=== PATIENT | male | born 1925 | race Caucasian/White ===

== ENCOUNTER 2016-07-16 17:55 | Emergency (ER) | payer MEDICARE, BC ==
[~2016-07-16] VITALS: Ht 177.8 cm; Wt 68.7 kg
[2016-07-16 17:55] VITALS: Ht 177.8 cm; Wt 68.7 kg
[~2016-07-16 17:55] MED LIST: ASPI-558 GT; CITA10TA7 GT; DEXT15DR5 OP; LACT1CAP80 PO; LISI-625 PO; LOPE2TAB24 PO; MECL-103 PO; MIRT15TA PO; POTA-81 PO; TAMS0.4C20 GT; TIZA2TAB4 PO; TORS10TA17 PO; TRAM50TA4 PO; VIT1CAPS2 PO; WARF6TAB23 PO
--- OUTSIDE RECORDS SUMMARY | 2016-07-16 17:59 | XMS REPORT | Continuity of Care Document ---
Author Author [facility] Organization [facility] Address Unknown Phone Unavailable Support Name Relationship Address Phone HAIM LARA MD Caregiver [address] [place] [address] Unavailable ERNESTO RODRIGUEZ DO Caregiver [address] [place] [address] Unavailable JEFF VAZQUEZ Next Of Kin [address] [place] [address] Insurance Providers Guarantor Abram Vazquez Address [address] [place] [address] Email DENIED/NO TO PT [facility] Policy Number [id number] Subscriber's Name ChatasabinoAbram hunt Rima Relationship 18 Self Group Number [id number] Effective Date 92 Payer Medicare Policy Number [id number] Subscriber's Name TaylorAbram Abarca Relationship 18 Self Effective Date 92 Payer Premises Med(Medicare/Caid/Tr Subscriber's Name Abram Vazquez Rima Relationship 18 Self Advance Directives Directive Response Recorded Date/Time Advanced Directives Type DNR Documentation Living Will DPOA for Healthcare 07/04/16 11:24am Chief Complaint and Reason for Visit Chief Complaint Fall Reason for Visit [id number] Problems Past Problems Medical Problem Onset Date Abrasion forearm Unknown C7 cervical fracture Unknown Fall from ground level Unknown Medications Current Home Medications Medication Dose Units Route Directions Days Qty Instructions Start Date Aspirin (Aspir 81) 81 Mg Tablet. 81 Mg Oral Daily 09/11/12 Citalopram Hydrobromide (Citalopram Hbr) 10 Mg Tablet 15 Mg Oral Daily 07/04/16 Dextran 70/Hypromellose (Artificial Tears Eye Drops) 15 Ml Drops 1 Drop Ophthalmic As Needed 07/04/16 Lactobacillus Combo No.10 (Probiotic) 1 Each Capsule 1 Cap Oral Daily 07/04/16 Lisinopril 5 Mg Tablet 5 Mg Oral Bedtime 12/10/15 Loperamide Hcl (Loperamide) 2 Mg Tablet 2 Mg Oral Every 3 Hours as needed for Diarrhea 07/04/16 Meclizine Hcl 25 Mg Tablet 25 Mg Oral Three Times A Day 07/04/16 Mirtazapine (Remeron) 15 Mg Tablet 7.5 Mg Oral Hs Qod 07/04/16 Potassium Chloride 20 Meq Tablet.er 20 Meq Oral Give With Breakfast 12/10/15 Tamsulosin Hcl (Flomax) 0.4 Mg Cap.sr.24h 0.4 Mg Oral Bedtime 20/02 Tizanidine Hcl 2 Mg Tablet 2 Mg Oral Every 6 Hours as needed for Back Pain 12/10/15 Torsemide 10 Mg Tablet 10 Mg Oral Daily 07/04/16 Tramadol Hcl 50 Mg Tablet 50-100 Mg Oral Q6h/0300,0900,1500,2100 as needed for Pain 07/04/16 Vit C/Vit E Ac/Lut/Mineral 1 (Prosight With Lutein Capsule) 1 Each Capsule 1 Cap Oral Daily 12/10/15 Warfarin Sodium (Coumadin) 6 Mg Tablet 6 Mg Oral Daily 12/10/15 Past Home Medications Medication Directions Ordered Status Valsartan (Diovan) 160 Mg Tablet, 160 Mg Oral Twice A Day 10/21/09 Discontinued Vit C/Vit E Acetate/Lutein/Min (Ocuvite Lutein Capsule) 1 Cap Capsule, 1 Cap Oral Daily 10/21/09 Discontinued Social History Social History Problem Response Recorded Date/Time Onset Date Status Hx Alcohol Use No 07/04/2016 11:24am Not Applicable Not Applicable Query Response Start Date Stop Date Smoking Status Unknown if ever smoked Hospital Discharge Instructions No hospital discharge instructions. Plan of Care Discharge Date 07/04/16 2:25pm Disposition 02 TO [facility] Condition at Discharge Improved Prescriptions See Medication Section Referrals HAIM LARA MD Address: [address] [place] [address] [place] [address] Functional Status No functional status results. Allergies, Adverse Reactions, Alerts Allergen Type Severity Reaction Status Last Updated Codeine Adverse Reaction Unknown "DOES NOT FEEL WELL" Active 09/11/12 Immunizations Immunization Event Date Type Not Given Reason Dose Number Lot Number Manager Front Office VIS Given Tdap 07/04/16 Administered 1 [id number] Polyheal 07/04/16 Query Response on File Recorded Date/Time Hx Influenza Vaccination Y 03-0310/21/09 1:31pm Hx Pneumococcal Vaccination Y 200310/21/09 1:31pm Hx Influenza Vaccination Y 03-0310/21/09 1:31pm Tetanus Diptheria Vaccine History 07/04/2016 07/04/16 11:24am Tdap Vaccine Hx 07/04/2016 07/04/16 2:10pm Vital Signs Acute Vital Signs Vital Response Date/Time Temperature (Fahrenheit) 97.5 deg F (96.8 - 99.1) 07/04/2016 11:24am Temperature (Calculated Celsius) 36.56774 degrees C (36.0 - 37.3) 07/04/2016 11:24am Pulse Rate (adult) 70 bpm (60 - 100) 07/04/2016 2:20pm Respiratory Rate 16 breaths/min (10 - 20) 07/04/2016 2:20pm O2 Sat by Pulse Oximetry 97 % (90 - 100) 07/04/2016 2:20pm Blood Pressure 163/79 mm Hg 07/04/2016 2:20pm Height (Feet) 6 feet 07/04/2016 11:24am Height (Inches) 0 inches 07/04/2016 11:24am Weight (Kilograms) 70.450 kg 07/04/2016 11:24am Body Mass Index (BMI) 21.0 07/04/2016 11:24am Results Laboratory Results Test Name Result Units Flags Reference Collection Date/Time Result Date/ Time Comments White Blood Count 7.5 T/MM3 4.5-11.0 07/04/2016 11:30am 07/04/2016 12: 05pm Red Blood Count 4.33 M/MM3 L 4.50-5.90 07/04/2016 11:30am 07/04/2016 12: 05pm Hemoglobin 12.9 GM/DL L 13.5-17.5 07/04/2016 11:30am 07/04/2016 12:05pm Hematocrit 40.1 % L 41-53 07/04/2016 11:30am 07/04/2016 12:05pm Mean Corpuscular Volume 92.6 UM3 80-100 07/04/2016 11:30am 07/04/2016 12:05pm Mean Corpuscular Hemoglobin 29.8 UUG 26-34 07/04/2016 11:302016 12:05pm Mean Corpuscular Hemoglobin Concent 32.2 GM/DL 31-37 07/04/2016 11:3007/04/2016 12:05pm RDW Standard Deviation 51.1 FL H 36.9-50.2 07/04/2016 11:302016 12:05pm Platelet Count 134 T/MM3 130-400 07/04/2016 11:3007/04/2016 12:05pm Mean Platelet Volume 11.7 UM3 9.4-12.4 07/04/2016 11:3007/04/2016 12 :05pm Neutrophils (%) (Auto) 73.1 % H 33-66 07/04/2016 11:3007/04/2016 12: 05pm Lymphocytes (%) (Auto) 15.4 % L 23-45 07/04/2016 11:3007/04/2016 12: 05pm Monocytes (%) (Auto) 8.7 % 0-9.0 07/04/2016 11:3007/04/2016 12:05pm Eosinophils (%) (Auto) 2.1 % 0-4 07/04/2016 11:3007/04/2016 12:05pm Basophils (%) (Auto) 0.4 % 0-2 07/04/2016 11:3007/04/2016 12:05pm Immature Granulocyte % (Auto) 0.3 % 0.0-0.5 07/04/2016 11:302016 12:05pm Absolute Neutrophils (auto) 5.5 T/MM3 1.8-7.7 07/04/2016 11:302016 12:05pm Absolute Lymphocytes (auto) 1.2 T/MM3 1-4.8 07/04/2016 11:302016 12:05pm Absolute Monocytes (auto) 0.7 T/MM3 0-0.8 07/04/2016 11:302016 12:05pm Absolute Eosinophils (auto) 0.2 T/MM3 0-0.5 07/04/2016 11:302016 12:05pm Absolute Basophils (auto) 0.0 T/MM3 0-0.2 07/04/2016 11:30am 2016 12:05pm Absolute Immature Granulocyte (auto 0.02 T/MM3 0.00-0.03 07/04/2016 11: 30am 07/04/2016 12:05pm Prothromb Time International Ratio 3.37 H 0.76-1.04 07/04/2016 11:30am 07/04/2016 11:44am THERAPUTIC RANGE=2.00-3.00 FOR ANTI-THROMBOSIS THERAPUTIC RANGE=2.50-3.50 FOR IMPLANTED VALVE Icterus Index < 2 0-7 07/04/2016 11:30am 07/04/2016 12:11pm Chemistry Specimen Hemolysis < 15 0-25 07/04/2016 11:3007/04/2016 12:11pm 0-25: Specimen Exhibited No Hemolysis. Turbidity < 20 0-20 07/04/2016 11:30am 07/04/2016 12:11pm Sodium Level 144 MEQ/L 134-144 07/04/2016 11:30am 07/04/2016 12:11pm Potassium Level 4.7 MEQ/L 3.6-5 07/04/2016 11:30am 07/04/2016 12:11pm Chloride Level 108 MEQ/L H 98-107 07/04/2016 11:30am 07/04/2016 12:11pm Carbon Dioxide Level 25 MEQ/L 22-30 07/04/2016 11:30am 07/04/2016 12: 11pm Anion Gap 11 MEQ/L 5-15 07/04/2016 11:30am 07/04/2016 12:11pm Blood Urea Nitrogen 24.0 MG/DL H 9-20 07/04/2016 11:30am 07/04/2016 12: 11pm Creatinine 0.8 MG/DL 0.8-1.5 07/04/2016 11:3007/04/2016 12:11pm BUN/Creatinine Ratio 30 RATIO H 6-26 07/04/2016 11:30am 07/04/2016 12: 11pm Glomerular Filtration Rate Calc 91 07/04/2016 11:30am 07/04/2016 12 :11pm Glucose Level 131 MG/DL H 75-110 07/04/2016 11:3007/04/2016 12:11pm Calculated Osmolality 283 MOSM/KG H 261-280 07/04/2016 11:30am 2016 12:11pm Calcium Level 9.5 MG/DL 8.4-10.2 07/04/2016 11:30am 07/04/2016 12:11pm Total Bilirubin 0.90 MG/DL 0.20-1.30 07/04/2016 11:30am 07/04/2016 12: 11pm Alkaline Phosphatase 86 U/L 38-126 07/04/2016 11:30am 07/04/2016 12: 11pm Total Protein 6.8 G/DL 6.3-8.2 07/04/2016 11:30am 07/04/2016 12:11pm Albumin 4.1 G/DL 3.5-5.0 07/04/2016 11:30am 07/04/2016 12:11pm Globulin 2.7 G/DL 2.4-3.6 07/04/2016 11:30am 07/04/2016 12:11pm Albumin/Globulin Ratio 1.5 RATIO 1.1-2.2 07/04/2016 11:30am 07/04/2016 12:11pm Aspartate Amino Transf (AST/SGOT) 23 U/L 17-59 07/04/2016 11:30am 07/04 12:11pm Alanine Aminotransferase (ALT/SGPT) 26 U/L 21-72 07/04/2016 11:30am 03/2017 12:11pm Troponin I < 0.012 ng/ml 0-0.12 07/04/2016 11:30am 07/04/2016 12:22pm Troponin values with a difference of 55% increase from orginal troponin value represent a true biological DELTA value. (%increase Calc=Orginal Troponin value, divided by subsequent Troponin value, multiplied by 100) Procedures Procedure Status Date Provider(s) Routine venipuncture Completed 04/05/16 Prothrombin time Completed 04/05/16 [id number] TRIP CHARGE. Completed 04/05/16 Routine venipuncture Completed 05/07/16 Prothrombin time Completed 05/07/16 Routine venipuncture Completed 05/31/16 Comprehen metabolic panel Completed 05/31/16 Complete cbc w/auto diff wbc Completed 05/31/16 [id number] TRIP CHARGE. Completed 05/31/16 Routine venipuncture Completed 06/07/16 Prothrombin time Completed 06/07/16 [id number] TRIP CHARGE. Completed 06/07/16 Encounters Encounter Location Arrival/Admit Date Discharge/Depart Date Attending Provider Departed Emergency Room [facility] 07/04/16 11:24am 07/04/16 2: 25pm ERNESTO RODRIGUEZ DO Registered [facility] 06/07/16 12:26am HAIM LARA MD Registered [facility] 05/31/16 12:41am MADI FISCHER APRN Registered [facility] 05/07/16 12:51am HAIM LARA MD [facility] 04/05/16 12:17am HAIM LARA MD Recent Diagnosis
--- OUTSIDE RECORDS SUMMARY | 2016-07-16 17:59 | XMS REPORT | Continuity of Care Document ---
Author Author [facility] Organization [facility] Address Unknown Phone Unavailable Allergies Active Description Code Type Severity Reaction Onset Reported/Identified Relationship to Patient Clinical Status Yes Codeine Drug Allergy Adverse Reaction 04/22/2012 Yes Codeine Drug Allergy N/A Adverse Reaction 04/22/2012 Medications Problems Date Dx Coded Attending Type Code Diagnosis Diagnosed By 04/23/2012 Karina Bowman MD Final 285.9 ANEMIA NOS 04/23/2012 Karina Bowman MD Final 287.5 THROMBOCYTOPENIA NOS 04/23/2012 Karina Bowman MD Final 396.3 MVI LATISHA 04/23/2012 Karina Bowman MD Final 401.9 HYPERTENSION NOS 04/23/2012 Karina Bowman MD Final 427.31 ATRIAL FIBRILLATION 04/23/2012 Karina Bowman MD Final 428.0 CHF NOS 04/23/2012 Karina Bowman MD Admitting 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 Visit Date/Time Discharge Status Pt. Type Provider Facility Loc./Unit Complaint [id number] 01/06/2013 12:01:00 2012 17:27:00 DIS Inpatient Yobani KIMBLE, Stephane Garza [facility] [place] F4SW [id number] 04/22/2012 22:10:00 2011 17:56:00 DIS Inpatient Corina Cavazos MD, Karina Perez [facility] [place] F7SE
--- OUTSIDE RECORDS SUMMARY | 2016-07-16 17:59 | XMS REPORT ---
Author Author [place]/[facility], [facility] - Organization Unknown Address Unknown Phone Unavailable Allergies, Adverse Reactions, Alerts * Codeine causes Adverse Reaction. * No Latex Allergy. * No IV Contrast Allergy. Problems * Acute Pain* Status:Resolved. * Congestive Heart Failure* Status:Active. * Dyspnea* Status:Active. * Fall Risk* Status:Resolved. * Intracranial Adaptive Capacity Low Level* Status:Active. * Knowledge Low Level* Status:Active. * Mobility Impairment* Status:Resolved. Procedures No relevant procedures performed. Medication It is the responsibility of the patient or patient service liaison representative to confirm the list of medications with either the patient's personal care provider or the patient's follow-up care provider to ensure the patient has an appropriate list of medications to take at home. Discharge medications* carvedilol (Coreg) 25 mg Tablet, Ordered By: Stephane Hilton Directions: 1 tablet oral twice a day with or after meal * warfarin 4 mg Tablet, Ordered By: Stephane Hilton Directions: 1 tablet oral daily with lunch * lisinopril 40 mg Tablet, Ordered By: Stephane Hilton Directions: 1 tablet oral daily * digoxin 250 mcg Tablet, Ordered By: Stephane Hilton Directions: 0.5 tablet oral daily * tamsuLOSIN (FLOmax) 0.4 mg capsule,extended release 24hr, Ordered By: Stephane Hilton Directions: 1 capsule oral daily at bedtime * aspirin 81 mg tablet,delayed release (DR/EC), Ordered By: Stephane Hilton Directions: 1 tablet oral daily * bumetanide 1 mg Tablet, Ordered By: Stephane Hilton Directions: 1 tablet oral twice a day * spironolactone 25 mg Tablet, Ordered By: Stephane Hilton Directions: 1 tablet oral daily Stopped medications* HYDROcodone-acetaminophen (Lortab) 5 mg-500 mg Tablet Directions: 0.5 tablet oral every four hours PRN pain * verapamil 120 mg Tablet Extended Release Directions: 1 tablet oral daily * Stopped medication: Hydrochlorothiazide 25 mg 0.5 tablet oral daily; stop date: over a week ago; discontinued per patient's doctor * zolpidem 5 mg Tablet Directions: 1 tablet oral daily at bedtime PRN insomnia * Centrum Silver 1 tablet oral daily; last taken at home: 01/05/2013 Results LAB--CHEMISTRY from 01/08/2013 3:43 AMAnion Gap 8 (3-20 ) BUN 19 mg/dL (4-20 mg/dL) Calcium 9.1 mg/dL (8.6-10.0 mg/dL) Chloride 102 mEq/L (99-109 mEq/L) CO2 28 mEq/L (22-32 mEq/L) Creatinine 1.07 mg/dL (0.64-1.27 mg/dL) eGFR >60 (>60- ) Glucose 106 mg/dL H (70-100 mg/dL) Potassium 4.1 mEq/L (3.6-5.1 mEq/L) Sodium 138 mEq/L (136-144 mEq/L) LAB--COAG STUDIES from 01/08/2013 3:43 AMINR 2.7 H (0.9-1.2 )
[2016-07-16] MEDS ORDERED: ACET325T51 GT (18:07)
[2016-07-16] MEDS ORDERED: CARV12.52 GT (18:09)
[2016-07-16] MEDS ORDERED: DIGO125T88 GT (18:10)
[2016-07-16] MEDS ORDERED: IPRA3AMP AEROSOL ×2 (18:11→18:12)
[2016-07-16] MEDS ORDERED: LISI-621 GT (18:13)
[2016-07-16] MEDS ORDERED: OMEPRAZOLE GT (18:15)
[2016-07-16] MEDS ORDERED: ONDA4TAB10 GT (18:16)
[2016-07-16] MEDS ORDERED: OXYC-46 GT (18:17)
[2016-07-16] MEDS ORDERED: RIVA10TA GT (18:19)
--- NOTE | 2016-07-16 18:29 | ERPDOC ---
Departure Disposition Decision Date: Jul 16, 2016 Disposition Decision Time: 19:54 Disposition: 01 DISCHARGED HOME, SELF-CARE Impression Impression Impression: Primary Impression: Encounter for wound care Severity: Moderate Condition: Improved Seen By: Physician only Referrals: HAIM LARA MD (Family) Patient Instructions: Surgical Site Infections (ED) Problems/Meds/Labs Reviewed?: Yes Medications reviewed and manag: Yes Additional Instructions: If bleeding recurs, apply gentle pressure. Follow up care ordered?: Yes Mental Status: Forgetful, Confused HPI - Skin General General Chief Complaint: Post-Surgical Problem Stated Complaint: FALL Time Seen by Provider: 18:24 HPI - Skin General Initial Comments 89 yo with newly placed G tube. Seen at long term with blood coming from site and brought in for eval. He is on xarelto. Uncertain of date of placement of tube. Pt has dementia. Allergies: Coded Allergies: codeine (Unverified Adverse Reaction, Unknown, "DOES NOT FEEL WELL", ) Past History Past Medical History Metabolic: hypertension Cardiac: A-fib, CHF Male: BPH Neurological: TIA Musculoskeletal: back pain, neck pain, other Surgical History Cardiac: cardiac bypass Vaccines Hx Influenza Vaccination: Yes (03-03) Hx Pneumococcal Vaccination: Yes (2003) Social History Smoking Status: Never smoker Substance Use Type: does not use Alcohol Intake: none Marital Status: Housing: assisted living facility Current Occupational Status: retired Advance Directives: Yes DNR Record Review Pertinent history updated: Yes Review of Systems Unable to Obtain Comments Dementia, unable to answer questions. Physical Exam General General Nourishment: appears stated age, no acute distress, adult, thin General Body Habitus: disheveled Vitals and Pain First Documented Vital Signs Date Time Temp Pulse Resp B/P Pulse Ox O2 Delivery O2 Flow Rate FiO2 07/16/16 17:55 98.7 70 16 167/79 96 Room Air Weight: Kilograms: 68.700 Height (feet): 5 Height (inches): 10.00 Triage Pain Scale: Normal Exams: Head: Normocephalic w/o trauma Chest/Resp: Clear all mead, with good airflow, and symmetry bilaterally CV: without murmur or gallop, Pulses 2+ all extremities, capillary refill, <2 seconds all ext., no pedal edema noted Abdomen: Bowel sounds positive, soft, non-tender, non-distended, no hepatosplenomegaly, masses or bruits noted Cardiovascular (brief) Cardiac: NOT FOUND: regular rate, regular rhythm Abdomen (brief) Abdominal Brief: FOUND: bowel normo active x4, soft Comments Tube site evaluated. no intraabdominal drainage. Pt has thin oozing blood from site. No specific vascular bleed seen. Differential Diagnoses Considering: Other (wound oozing.) Progress Results/Orders Orders Procedure Category Date Status Time Kub W/Upright RAD 07/16/16 Taken 19:01 Progress Progress X-rays negative. Patient had thin blood oozing at site. A little bit of pressure was applied and patient was given 20 minutes of observation. Bleeding stopped area and I do think this will recur if he tugs at at, which he may. I discussed this with the caregiver that was present with him. They will change bandages as needed and if refill becomes out of control that can bring him back , although I do not think this will be an issue. PEYMAN VILLANUEVA MD Jul 16, 2016 18:29
--- OUTSIDE RECORDS SUMMARY | 2016-07-16 18:36 | XMS REPORT | Continuity of Care Document ---
[...] Status Pt. Type Provider Facility Loc./Unit Complaint [id number] 01/06/2013 12:01:00 2012 17:27:00 DIS Inpatient Yobani KIMBLE, Stephane Garza [facility] [place] F4SW [id number] 04/22/2012 22:10:00 2011 17:56:00 DIS Inpatient Corina Cavazos MD, Karina Perez [facility] [place] F7SE
--- OUTSIDE RECORDS SUMMARY | 2016-07-16 18:36 | XMS REPORT ---
Author Author [place], [facility] - Organization Unknown Address Unknown Phone Unavailable [...] the responsibility of the patient or patient lead generation representative to confirm the list of medications [...]
--- NOTE | 2016-07-16 18:38 | NUR ---
Report Call placed to [facility]. Nurse there gives information that PEG Tube was placed on 07/09/16
[2016-07-16 20:00] VITALS: BP 167/79; PULSE 70; RESP 16; TEMP 98.7; O2SAT 96
--- NOTE | 2016-07-18 10:28 | DI ---
Indication: ITS.REASON: peg tube placement, PROCEDURE: KUB W/UPRIGHT: Encounter: Initial Comparison: None Findings: Small pleural effusions with lower lobe airspace disease. No gross free intraperitoneal air. Gastrostomy tube in place projecting over the stomach with some contrast material present which appears intraluminal. Calcified granuloma or gallstone projecting over the liver. Nonobstructive nonspecific bowel gas pattern. Cardiac pacemaker. Degenerative changes in the spine. Impression: Gastrostomy tube projects in appropriate position. .
== END 2016-07-16 20:00 | disposition home or self-care (01) ==
LOC: ED 17:55
DX: K94.21 Gastrostomy hemorrhage (principal); Z79.01 Long term (current) use of anticoagulants

== ENCOUNTER 2016-07-26 07:30 | Emergency (ER) | payer MEDICARE, BC ==
[~2016-07-26] VITALS: Ht 180.3 cm; Wt 69.5 kg
[~2016-07-26 07:30] MED LIST changes: +ACET325T51 GT; +CARV12.52 GT; -DEXT15DR5 OP; +DIGO125T88 GT; +IPRA3AMP AEROSOL; -LACT1CAP80 PO; +LISI-621 GT; -LISI-625 PO; -LOPE2TAB24 PO; -MECL-103 PO; -MIRT15TA PO; +OMEPRAZOLE GT; +ONDA4TAB10 GT; +OXYC-46 GT; -POTA-81 PO; +RIVA10TA GT; -TIZA2TAB4 PO; -TORS10TA17 PO; -TRAM50TA4 PO; -VIT1CAPS2 PO; -WARF6TAB23 PO
[2016-07-26 07:31] VITALS: Ht 180.3 cm; Wt 69.5 kg
--- OUTSIDE RECORDS SUMMARY | 2016-07-26 07:34 | XMS REPORT ---
Author Author [place] [place] [facility] - Organization Unknown Address Unknown Phone Unavailable [...] the responsibility of the patient or patient product representative to confirm the list of medications [...]
--- OUTSIDE RECORDS SUMMARY | 2016-07-26 07:34 | XMS REPORT | Continuity of Care Document ---
Author Author [facility] Organization [facility] Address Unknown Phone Unavailable Allergies [...] Status Pt. Type Provider Facility Loc./Unit Complaint [id number] 01/06/2013 12:01:00 2012 17:27:00 DIS Inpatient Yobani KIMBLE, Stephane Garza [facility] [place] F4SW [id number] 04/22/2012 22:10:00 2011 17:56:00 DIS Inpatient Corina Cavazos MD, Karina Perez [facility] [place] F7SE
--- OUTSIDE RECORDS SUMMARY | 2016-07-26 07:34 | XMS REPORT | Continuity of Care Document ---
Author Author [facility] Organization [facility] Address Unknown Phone Unavailable Support Name Relationship Address Phone HAIM LARA MD Caregiver [address] [place] [address] Unavailable PEYMAN VILLANUEVA MD Caregiver [address] [place] [address] Unavailable JEFF VAZQUEZ Next Of Kin [address] [place] [address] Insurance Providers Guarantor Abram Vazquez Address [address] [place] [address] Email DENIED/NO TO PT PORTAL Payer Medicare Policy Number [id number] Subscriber's Name ChatasabinoAbram hunt Rima Relationship 18 Self Effective Date 92 Payer [facility] Policy Number [id number] Subscriber's Name Abram Vazquez Rima Relationship 18 Self Group Number [id number] Advance Directives Directive Response Recorded Date/Time Advanced Directives Type None 07/16/16 5:55pm Chief Complaint and Reason for Visit Chief Complaint Post-Surgical Problem Reason for Visit Encounter for wound care Problems Past Problems Medical Problem Onset Date Abrasion forearm Unknown C7 cervical fracture Unknown Encounter for wound care Unknown Fall from ground level Unknown Medications Current Home Medications Medication Dose Units Route Directions Days Qty Instructions Start Date Acetaminophen 325 Mg Tablet 650 Mg G Tube As Needed as needed for Pain 07/16/16 Aspirin (Aspir 81) 81 Mg Tablet. 81 Mg G Tube Daily 09/11/12 Carvedilol 12.5 Mg Tablet 12.5 Mg G Tube Twice Daily With Meals BEST WITH FOOD. 07/16/16 Citalopram Hydrobromide (Citalopram Hbr) 10 Mg Tablet 10 Mg G Tube Daily 07/04/16 Digoxin 125 Mcg Tablet 125 Mcg G Tube Daily 07/16/16 Ipratropium/Albuterol Sulfate (Iprat-Albut 0.5-3(2.5) Mg/3 Ml) 3 Ml Ampul.neb 1 Unit Aerosol Tx. Four Times Daily 07/16/16 Ipratropium/Albuterol Sulfate (Iprat-Albut 0.5-3(2.5) Mg/3 Ml) 3 Ml Ampul.neb 1 Unit Aerosol Tx. Every 2 Hours as needed for Shortness Of Air Lisinopril 20 Mg Tablet 20 Mg G Tube Daily 07/16/16 Omeprazole Susp. 10 Ml G Tube Twice A Day 07/16/16 Ondansetron (Ondansetron Odt) 4 Mg Tab.rapdis 4 Mg G Tube Q6h/0300,0900, 1500,2100 07/16/16 Oxycodone Hcl/Acetaminophen (Percocet 5-325 Mg Tablet) 5-325 Tablet 1 Tab G Tube Every 4 Hours as needed for Pain 07/16/16 Rivaroxaban (Xarelto) 10 Mg Tablet 10 Mg G Tube Daily 21 Days DC 07/16/16 Tamsulosin Hcl (Flomax) 0.4 Mg Cap.sr.24h 0.8 Mg G Tube Bedtime 10/21/09 Past Home Medications Medication Directions Ordered Status Valsartan (Diovan) 160 Mg Tablet, 160 Mg Oral Twice A Day 10/21/09 Discontinued Vit C/Vit E Acetate/Lutein/Min (Ocuvite Lutein Capsule) 1 Cap Capsule, 1 Cap Oral Daily 10/21/09 Discontinued Social History Social History Problem Response Recorded Date/Time Onset Date Status Hx Substance Use No 07/16/2016 6:10pm Not Applicable Not Applicable Hx Alcohol Use No 07/16/2016 6:10pm Not Applicable Not Applicable Query Response Start Date Stop Date Smoking Status Never smoker Hospital Discharge Instructions No hospital discharge instructions. Plan of Care Discharge Date 07/16/16 8:00pm Disposition 01 DISCHARGED HOME, SELF-CARE Condition at Discharge Improved Instructions/Education Provided Surgical Site Infections (ED) Prescriptions See Medication Section Referrals HAIM LARA MD Address: [address] [place] [address] [place] [address] Additional Instructions/Education If bleeding recurs, apply gentle pressure. Functional Status No functional status results. Allergies, Adverse Reactions, Alerts Allergen Type Severity Reaction Status Last Updated Codeine Adverse Reaction Unknown "DOES NOT FEEL WELL" Active 09/11/12 Immunizations Immunization Event Date Type Not Given Reason Dose Number Lot Number [employer] VIS Given Tdap 07/04/16 Administered 1 [id number] [employer] 07/04/16 Query Response on File Recorded Date/Time Hx Influenza Vaccination Y 03-0310/21/09 1:31pm Hx Pneumococcal Vaccination Y 200310/21/09 1:31pm Hx Influenza Vaccination Y 03-0310/21/09 1:31pm Tetanus Diptheria Vaccine History 07/04/2016 07/16/16 6:10pm Tdap Vaccine Hx 07/04/2016 07/16/16 6:10pm Vital Signs Acute Vital Signs Vital Response Date/Time Temperature (Fahrenheit) 98.7 deg F (96.8 - 99.1) 07/16/2016 8:00pm Temperature (Calculated Celsius) 37.22562 degrees C (36.0 - 37.3) 07/16/2016 8:00pm Pulse Rate (adult) 70 bpm (60 - 100) 07/16/2016 8:00pm Respiratory Rate 16 breaths/min (10 - 20) 07/16/2016 8:00pm O2 Sat by Pulse Oximetry 96 % (90 - 100) 07/16/2016 8:00pm Blood Pressure 167/79 mm Hg 07/16/2016 8:00pm Height (Feet) 5 feet 07/16/2016 5:55pm Height (Inches) 10.00 inches 07/16/2016 5:55pm Weight (Kilograms) 68.700 kg 07/16/2016 5:55pm Body Mass Index (BMI) 21.0 07/16/2016 5:55pm Results Laboratory Results Test Name Result Units Flags Reference Collection Date/Time Result Date/ Time Comments White Blood Count 7.5 T/MM3 4.5-11.0 07/04/2016 11:30am 07/04/2016 12: 05pm Red Blood Count 4.33 M/MM3 L 4.50-5.90 07/04/2016 11:30am 07/04/2016 12: 05pm Hemoglobin 12.9 GM/DL L 13.5-17.5 07/04/2016 11:30am 07/04/2016 12:05pm Hematocrit 40.1 % L 41-53 07/04/2016 11:30am 07/04/2016 12:05pm Mean Corpuscular Volume 92.6 UM3 80-100 07/04/2016 11:3007/04/2016 12:05pm Mean Corpuscular Hemoglobin 29.8 UUG 26-34 [...] Absolute Eosinophils (auto) 0.2 T/MM3 0-0.5 07/04/2016 11:30am 2016 12:05pm Absolute Basophils (auto) 0.0 T/MM3 0-0.2 07/04/2016 11:30am 2016 12:05pm Absolute Immature Granulocyte (auto 0.02 T/MM3 0.00-0.03 07/04/2016 11: 30am 07/04/2016 12:05pm Prothromb Time International Ratio 3.37 H 0.76-1.04 07/04/2016 11:3007/04/2016 11:44am THERAPUTIC RANGE=2.00-3.00 FOR ANTI-THROMBOSIS THERAPUTIC RANGE=2.50-3.50 FOR IMPLANTED VALVE Icterus Index < 2 0-7 07/04/2016 11:30am 07/04/2016 12:11pm Chemistry Specimen Hemolysis < 15 0-25 07/04/2016 11:30am 07/04/2016 12:11pm 0-25: Specimen Exhibited No Hemolysis. Turbidity < 20 0-20 07/04/2016 11:30am 07/04/2016 12:11pm Sodium Level 144 MEQ/L 134-144 07/04/2016 11:30am 07/04/2016 12:11pm Potassium Level 4.7 MEQ/L 3.6-5 07/04/2016 11:30am 07/04/2016 12:11pm Chloride Level 108 MEQ/L H 98-107 07/04/2016 11:30am 07/04/2016 12:11pm Carbon Dioxide Level 25 MEQ/L 22-30 07/04/2016 11:3007/04/2016 12: 11pm Anion Gap 11 MEQ/L 5-15 07/04/2016 11:30am 07/04/2016 12:11pm Blood Urea Nitrogen 24.0 MG/DL H 9-20 07/04/2016 11:30am 07/04/2016 12: 11pm Creatinine 0.8 MG/DL 0.8-1.5 07/04/2016 11:30am 07/04/2016 12:11pm BUN/Creatinine Ratio 30 RATIO H 6-26 07/04/2016 11:30am 07/04/2016 12: 11pm Glomerular Filtration Rate Calc 91 07/04/2016 11:30am 07/04/2016 12 :11pm Glucose Level 131 MG/DL H 75-110 07/04/2016 11:30am 07/04/2016 12:11pm Calculated Osmolality 283 MOSM/KG H 261-280 07/04/2016 11:30am 2016 12:11pm Calcium Level 9.5 MG/DL 8.4-10.2 07/04/2016 11:30am 07/04/2016 12:11pm Total Bilirubin 0.90 MG/DL 0.20-1.30 07/04/2016 11:30am 07/04/2016 12: 11pm Alkaline Phosphatase 86 U/L 38-126 07/04/2016 11:30am 07/04/2016 12: 11pm Total Protein 6.8 G/DL 6.3-8.2 07/04/2016 11:30am 07/04/2016 12:11pm Albumin 4.1 G/DL 3.5-5.0 07/04/2016 11:3007/04/2016 12:11pm Globulin 2.7 G/DL 2.4-3.6 07/04/2016 11:3007/04/2016 12:11pm Albumin/Globulin Ratio 1.5 RATIO 1.1-2.2 07/04/2016 11:30am 07/04/2016 12:11pm Aspartate Amino Transf (AST/SGOT) 23 U/L 17-59 07/04/2016 11:30am 07/04 12:11pm Alanine Aminotransferase (ALT/SGPT) 26 U/L 21-72 07/04/2016 11:30am 03/2017 12:11pm Troponin I < 0.012 ng/ml 0-0.12 07/04/2016 11:3007/04/2016 12:22pm Troponin values with a difference of 55% increase from orginal troponin value represent a true biological DELTA value. (%increase Calc=Orginal Troponin value, divided by subsequent Troponin value, multiplied by 100) Procedures Procedure Status Date Provider(s) Routine venipuncture Completed 05/07/16 Prothrombin time Completed 05/07/16 Routine venipuncture Completed 05/31/16 Comprehen metabolic panel Completed 05/31/16 Complete cbc w/auto diff wbc Completed 05/31/16 [id number] TRIP CHARGE. Completed 05/31/16 Routine venipuncture Completed 06/07/16 Prothrombin time Completed 06/07/16 [id number] TRIP CHARGE. Completed 06/07/16 Insert temp bladder cath Completed 07/04/[address] head/brain w/o dye Completed 07/04/16 Ct maxillofacial w/o dye Completed 07/04/16 Chest x-ray 1 view frontal Completed 07/04/16 Ct neck spine w/o dye Completed 07/04/16 Comprehen metabolic panel Completed 07/04/16 Assay of troponin quant Completed 07/04/16 Complete cbc w/auto diff wbc Completed 07/04/16 Prothrombin time Completed 07/04/16 Immunization admin Completed 07/04/16 Tdap vaccine 7 yrs/> im Completed 07/04/16 Electrocardiogram tracing Completed 07/04/16 Emergency dept visit Completed 07/04/16 Encounters Encounter Location Arrival/Admit Date Discharge/Depart Date Attending Provider Departed Emergency Room [facility] 07/16/16 5:55pm 07/16/16 8: 00pm PEYMAN VILLANUEVA MD Departed Emergency Room [facility] 07/04/16 11:24am 07/04/16 2: 25pm ERNESTO RODRIGUEZ DO Registered Clinic [facility] 06/07/16 12:26am HAIM LARA MD Registered Clinic [facility] 05/31/16 12:41am MADI FISCHER APRN Registered [facility] 05/07/16 12:51am HAIM LARA MD Recent Diagnosis
--- OUTSIDE RECORDS SUMMARY | 2016-07-26 08:25 | XMS REPORT | Continuity of Care Document ---
Author Author [facility] Organization [facility] Address Unknown Phone Unavailable Allergies [...] Status Pt. Type Provider Facility Loc./Unit Complaint [id number] 01/06/2013 12:01:00 2012 17:27:00 DIS Inpatient Yobani KMIBLE, Stephane Garza [facility] [place] F4[facility] [id number] 04/22/2012 22:10:00 2011 17:56:00 DIS Inpatient Corina Cavazos MD, Karina Perez [facility] [place] F7SE
--- OUTSIDE RECORDS SUMMARY | 2016-07-26 08:25 | XMS REPORT ---
Author Author [facility] - Organization Unknown Address Unknown [...] the responsibility of the patient or patient digital media representative to confirm the list of medications [...]
--- NOTE | 2016-07-26 09:00 | NUR ---
REPORT REC'D FROM LUISANA ROSAS. THIS RN WILL RESUME CARE.
--- NOTE | 2016-07-26 09:10 | NUR ---
PROVIDER DR. VARGAS AT BEDSIDE FOR 24FR G TUBE PLACEMENT.
--- NOTE | 2016-07-26 09:18 | ERPDOC ---
Departure Disposition Decision Date: Jul 26, 2016 Disposition Decision Time: : Disposition: 01 DISCHARGED HOME, SELF-CARE Impression Impression Impression: Primary Impression: Gastrojejunostomy tube dislodgement Severity: Mild Condition: Improved Seen By: Physician only Referrals: Dr. Bejarano As Scheduled HAIM LARA MD (Family) call for appointment Patient Instructions: Tube Feeding (GEN) Problems/Meds/Labs Reviewed?: Yes Medications reviewed and manag: Yes Follow up care ordered?: Yes Mental Status: Alert, Oriented HPI - General Medical General Chief Complaint: Acute Medical Problem Stated Complaint: G TUBE FELL OUT Time Seen by Provider: 08:16 Source: patient (Patient presents to the ER for replacement of his G-Tube. Patient had the tube placed on 07/09/[address] Bejarano in [place]. Patient apparently pulled the tube overnight in his sleep, [facility] staff at the nursing home placed a guzman catheter. ) Exam Limitations: no limitations HPI - General Medical Occurred At: home Onset: Changing over time Duration: 6-12 hrs Pain Scale: Now: 0/10, Worst: Unable to Rate Modifying Factors: IMPROVES WITH: other Associated Symptoms: denies symptoms Hx of Similar Symptoms: Yes Allergies: Coded Allergies: codeine (Unverified Adverse Reaction, Unknown, "DOES NOT FEEL WELL", ) Past History Past Medical History Metabolic: hypertension Cardiac: A-fib, CHF Male: BPH Neurological: TIA Musculoskeletal: back pain, neck pain, other Surgical History Cardiac: cardiac bypass Family History Family PMH: FOUND: other Vaccines Hx Influenza Vaccination: Yes (03-03) Hx Pneumococcal Vaccination: Yes (2003) Social History Smoking Status: Unknown if ever smoked Does patient use chewing tobac: No Second Hand Exposure: No Substance Use Type: does not use Alcohol Intake: none Marital Status: Housing: assisted living facility Service: No Current Occupational Status: retired Occupational Hazard: No Advance Directives: Yes DNR Record Review Pertinent history updated: Yes Review of Systems Constitutional Constitutional: DENIES: chills, fever Eyes Lids/Accessories: DENIES: erythema, swelling ENMT Ears: DENIES: erythema, pain Balance: DENIES: ataxia, vertigo Sinuses: DENIES: congestion, rhinorrhea Mouth/Throat: DENIES: sore throat Cardiovascular Cardiac: DENIES: chest pain, dyspnea on exertion, orthopnea Rhythm/Rate: DENIES: tachycardia Pulmonary Respiratory: DENIES: cough, dyspnea, sputum GI Upper Abdomen: DENIES: nausea, pain, vomiting Lower Abdomen: DENIES: constipation, diarrhea, pain General: DENIES: dysuria Musculoskeletal General: DENIES: cramps, pain, weakness Integumentary Skin: DENIES: color change, itching, rash Neurological General: DENIES: ataxia, headache, numbness, poor coordination, seizures, syncope, vertigo, weakness Psychiatric Psychiatric: DENIES: anxiety, depression, nervousness Hematologic/Lymphatic Hematologic/Lymphatic: DENIES: anemia Allergic/Immunological Allergic/Immunoligical: DENIES: sneezing All other Systems All Other Systems: Reviewed and Negative Physical Exam General General Nourishment: well nourished, well developed, appears stated age, adult , thin General Body Habitus: well groomed Vitals and Pain First Documented Vital Signs Date Time Temp Pulse Resp B/P Pulse Ox O2 Delivery O2 Flow Rate FiO2 07/26/16 07:31 97.9 70 16 159/74 94 Room Air Weight: Kilograms: 69.500 Height (feet): 5 Height (inches): 11.00 Triage Pain Scale: RN VS reviewed by Provider: Yes Eyes (brief) Eyes Brief: found: EOMI, PERRL ENMT (brief) ENMT Brief: FOUND: TM clear, TM good light reflex, mucosa moist, NOT FOUND: pharnyx erythema Neck (brief) Neck: FOUND: trachea midline, NOT FOUND: adenopathy, tenderness, tracheal deviation Respiratory (brief) Respiratory: FOUND: clear all mead, equal bilaterally Cardiovascular (brief) Cardiac: FOUND: regular rate, regular rhythm Capillary Refill: <2 sec Pulses: all distal extremities, equal, strong Abdomen (brief) Abdominal Brief: FOUND: bowel normo active x4, other (guzman catheter in place, pending G-Tube placement), soft, NOT FOUND: distended, tender Lymphatic (brief) Lymphatic Brief: NOT FOUND: adenopathy Musculoskeletal (brief) Musculoskeletal Brief: NOT FOUND: spasm, tenderness Integumentary (brief) Integumentary Brief: FOUND: pink, warm Neurologic (brief) Neurological Brief: FOUND: CN w/o gross def to obs, gait w/o gross def to obs, motor-no gross deficits, sensory-no gross deficits, NOT FOUND: ataxia Psychiatric (brief) Psychiatric Brief: FOUND: alert, attentive, normal affect, oriented Differential Diagnoses Considering: Other Procedures Procedures Performed Procedures Performed: Ostomy Tube Placement Additional Procedures Name of Procedure: G-Tube placement Procedure Detail 24 FR G-Tube placed without difficulty CRISELDA VARGAS DO Jul 26, 2016 09:18
[2016-07-26 09:39] VITALS: BP 169/87; PULSE 70; RESP 16; TEMP 97.9; O2SAT 94
--- NOTE | 2016-07-26 09:39 | NUR ---
DISCHARGE WRITTEN INSTRUCTIONS REVIEWED AND SENT WITH FAMILY. FAMILY VERBALIZE UNDERSTANDING OF DI, DENY QUESTIONS. PT EXITS ER BY W/C PER THIS RN AND IS ASSISTED INTO VEHICLE AT THIS TIME.
--- NOTE | 2016-07-26 09:48 | NUR ---
REPORT CALLED TO LIV, NURSING STAFF AT [facility]. INFORMED OF RE-INSERTION OF G-TUBE.
== END 2016-07-26 09:39 | disposition home or self-care (01) ==
LOC: ED 07:30
DX: Z43.1 Encounter for attention to gastrostomy (principal)

== ENCOUNTER → 2016-08-23 | Outpatient (CLI) | payer MEDICARE, BC ==
[2016-08-23 16:21] LABS: BLOOD, URINE NEGATIVE (NEGATIVE); COLOR,URINE YELLOW (YELLOW); LEUKOCYTE ESTERASE ,URINE NEGATIVE (NEGATIVE); NITRITE,URINE NEGATIVE (NEGATIVE); UROBILINOGEN,URINE 0.2 EU/DL (NORMAL)
== END ==
LOC: LABN.BH 16:05
PROVIDERS: ATTEND Family Medicine
DX: N39.0 Urinary tract infection, site not specified (principal)
CPT/HCPCS: 81003; 87086